=== PATIENT | male | born 1970 | race Caucasian/White ===

== ENCOUNTER 2018-08-29 09:46 | Emergency (ER) | payer MEDICAID, OTHER ==
--- NOTE | 2018-08-29 10:15 | ED ---
General Adult HPI - General Chief complaint: Psychiatric Symptoms Stated complaint: Mental Health Time Seen by Provider: 08/29/18 10:02 Source: patient, RN notes reviewed, old records reviewed Mode of arrival: ambulatory Limitations: no limitations - History of Present Illness Initial comments: 48 -year-old male presenting for evaluation of depression and anxiety. Patient states he has a long history of depression and anxiety, is currently on Lamictal and Zoloft. He feels these medications are not working. Denies suicidal thoughts although he states he does wish he would not wake up. No specific plan and states he would never completely suicide due to his zoroastrianism believes. Patient does have history of previous alcoholism, states his last drink was 2 days ago. He is attempting to refrain from alcohol. No physical complaints. - Related Data Home Medications Medication Instructions Recorded Confirmed Aspirin 650 mg PO DAILY PRN 08/29/18 08/29/18 Previous Rx's Medication Instructions Recorded Sertraline [Zoloft] 150 mg PO DAILY #45 tab 08/07/18 lamoTRIgine [LaMICtal] 100 mg PO DAILY #30 tablet 08/07/18 Allergies Allergy/AdvReac Type Severity Reaction Status Date / Time No Known Allergies Allergy Verified 08/29/18 10:24 Review of Systems ROS Statement: Those systems with pertinent positive or pertinent negative responses have been documented in the HPI. ROS Other: All systems not noted in ROS Statement are negative. Past Medical History Past Medical History: No Reported History Additional Past Medical History / Comment(s): Chronic back pain, herniated disc History of Any Multi-Drug Resistant Organisms: None Reported Past Surgical History: No Surgical Hx Reported Additional Past Surgical History / Comment(s): laporotomy Past Anesthesia/Blood Transfusion Reactions: No Reported Reaction Past Psychological History: Anxiety, Depression Smoking Status: Current every day smoker Past Alcohol Use History: Abuse Past Drug Use History: None Reported - Past Family History Father Family Medical History: Diabetes Mellitus, Renal Disease Additional Family Medical History / Comment(s): Father at age 67 from myocardial infarction with history of diabetes and obesity. Pt. states his father had renal failure/disease and pancreatitis from DM. Mother Family Medical History: No Reported History Additional Family Medical History / Comment(s): Mother is alive at age 69 with chronic back pain Brother(s) Family Medical History: No Reported History Additional Family Medical History / Comment(s): Patient has 2 brothers with no major medical problems. Patient does not have any sisters. General Exam Limitations: no limitations General appearance: alert, in no apparent distress Head exam: Present: atraumatic, normocephalic Eye exam: Present: normal appearance, PERRL ENT exam: Present: normal exam Neck exam: Present: normal inspection Respiratory exam: Present: normal lung sounds bilaterally, respiratory distress Cardiovascular Exam: Present: regular rate, normal rhythm GI/Abdominal exam: Present: soft. Absent: distended, tenderness Neurological exam: Present: alert, oriented X3, CN II-XII intact. Absent: motor sensory deficit Psychiatric exam: Present: depressed Skin exam: Present: warm, dry, intact. Absent: cyanosis, diaphoretic Course Vital Signs 08/29/18 09:54 Temperature 97.4 F L Pulse Rate 64 Respiratory 20 Rate Blood Pressure 175/67 O2 Sat by Pulse 99 Oximetry Medical Decision Making - Medical Decision Making 40-year-old male presenting with depression, no suicidal plan. Patient is cleared medically and evaluated by EPS. They do feel safe for discharge at this time with close outpatient follow-up. Outpatient appointment is arranged for the patient. He is agreeable with discharge, no suicidal ideation or plan. Will return with worsening or changing symptoms. Disposition Clinical Impression: Depression Disposition: HOME SELF-CARE Condition: Good Instructions: Depression (ED) Additional Instructions: Please follow up as an outpatient with psychiatric services. Return with worsening or changing symptoms. Is patient prescribed a controlled substance at d/c from ED?: No Referrals: Gus Ramos MD [Primary Care Provider] - 1-2 days Time of Disposition: 12:46
[2018-08-29 13:00] VITALS: BP 136/79; PULSE 16; RESP 61; TEMP 97.2
== END 2018-08-29 13:00 | disposition home or self-care (01) ==
LOC: EC 09:46
DX: F32.9 Major depressive disorder, single episode, unspecified (principal); F41.9 Anxiety disorder, unspecified; F17.200 Nicotine dependence, unspecified, uncomplicated
CPT/HCPCS: 99284